=== PATIENT | female | born 1940 | race Caucasian/White ===

== ENCOUNTER → 2016-12-28 | Outpatient (CLI) | payer MEDICARE ==
--- NOTE | 2016-08-29 10:22 | MH ---
cc: EVELIN CARPENTER DATE OF ADMISSION 12/28/2016 ADMISSION DIAGNOSIS Cloudy posterior capsule left eye. HISTORY OF PRESENT ILLNESS This 75-year-old white female is coming through [facility] for the purpose of a YAG laser posterior capsulotomy of the left eye. She is status post bilateral cataract surgery with intraocular lens implants in 2013 and has done well postoperatively, but now notices decreasing visual acuity interfering with her daily activities and has elected to have a YAG laser posterior capsulotomy of the left eye at this time. PAST MEDICAL HISTORY The patient has a history of: 1. Kidney failure stage III 2. Acid reflux 3. Sinus problems 4. Cholesterol problems 5. Atrial fibrillation 6. Hypertension SURGICAL HISTORY Includes the: 1. Bilateral cataracts mentioned above 2. Foot surgery 3. Left knee replacement MEDICATIONS Daily medications include: 1. Xarelto 2. Avastin 3. Aspirin 4. Ranitidine 5. Bethanechol 6. Centrum Silver 7. Propafenone ALLERGIES She has no known allergies. SOCIAL HISTORY Noncontributory FAMILY HISTORY Positive for mother with cataracts and retinal tear. REVIEW OF SYSTEMS Noncontributory OCULAR EXAM On ocular exam, the patient's best corrected visual acuity is 20/25 -3 in each eye. Visual cho are full to confrontation testing. Extraocular muscle exam reveals full versions with orthophoria at distance and near. Pupils are 2.5 mm equal, round, reactive to light without afferent defect. Anterior segment examination reveals dermatochalasis of the eyelid skin. There is a posterior chamber intraocular lens in place in both eyes with cloudy posterior capsules in both eyes. Intraocular pressure is 12 in the right eye and 13 in the left by applanation tonometry. Dilated fundus exam revealed sharp disks with cup-to-disk ratio of 0.3 bilaterally. There is some granularity in the macula of each eye. A posterior vitreous detachment is present bilaterally. IMPRESSION 1. Cloudy posterior capsule both eyes 2. Pseudophakia both eyes 3. Posterior vitreous detachment both eyes PLAN The plan is YAG laser posterior capsulotomy of the eye through [facility]. MD KATHARINA Ochoa/AKIRA /7:45 AM /10:20 AM HAL
[~2016-12-28] MED LIST: BALANCED SALT SOLN OPHT IRRIG 15 ML BTL ONE; BETH25TA2 PO; CALC1TAB87 PO; CENTCHW4 CHEW; FLUOROMETHOLONE 0.25% OPHT SUSP 5 ML BTL LEFT EYE ONE; FLUOROMETHOLONE 0.25% OPHT SUSP 5 ML BTL ONE; HYDR-3516 PO; LIPI20TA PO; PHENYLEPHRINE HCL 2.5% OPTH SOLN 2 ML BTL LEFT EYE ONE; PHENYLEPHRINE HCL 2.5% OPTH SOLN 2 ML BTL ONE; PROP1CAP32 PO; PROPARACAINE HCL 0.5% OPHT SOLN 15 ML BTL LEFT EYE ONE; PROPARACAINE HCL 0.5% OPHT SOLN 15 ML BTL ONE; TROPICAMIDE 1% OPHT SOLN 15 ML BTL LEFT EYE ONE; TROPICAMIDE 1% OPHT SOLN 15 ML BTL ONE; XARE20TA PO; [UNRECOGNIZED DRUG - CODE] PO
--- NOTE | 2016-12-28 11:08 | MP ---
cc: EVELIN MARIE M.D. DATE OF SURGERY 12/28/2016 PREOPERATIVE DIAGNOSIS Cloudy posterior capsule left eye. POSTOPERATIVE DIAGNOSIS Cloudy posterior capsule left eye. OPERATION YAG laser posterior capsulotomy, left eye. SURGEON Evelin Marie MD ANESTHESIA Topical COMPLICATIONS None INDICATIONS See history and physical previously dictated. PROCEDURE The patient arrived at [facility]. Blood pressure was 120/70, pulse 57, respirations 18. A drop of Alphagan P and Mydriacyl were instilled in the left eye. The patient was seated at the YAG laser. A drop of Alcaine was instilled in the left eye and a YAG laser posterior capsulotomy lens was placed on the anterior surface of the left cornea. YAG laser posterior capsulotomy was carried out utilizing 99 exposures of 1.6 millijoules. An adequate opening was seen following the procedure. A drop of Alphagan P was instilled topically. The patient was given a prescription for a topical steroid to be used four times per day and has an appointment for follow up on the first postoperative day in my office. The patient left the [facility] in satisfactory condition. MD KATHARINA Ochoa/AKIRA /10:28 AM /11:02 AM .2
== END ==
LOC: PHSDC 07:31
PROVIDERS: ATTEND Ophthalmology
DX: H26.492 Other secondary cataract, left eye (principal); H43.813 Vitreous degeneration, bilateral; Z96.1 Presence of intraocular lens; I12.9 Hypertensive chronic kidney disease with stage 1 through stage 4 chronic kidney disease, or unspecified chronic kidney disease; N18.3 Chronic kidney disease, stage 3 (moderate); I48.91 Unspecified atrial fibrillation; K21.9 Gastro-esophageal reflux disease without esophagitis; Z79.01 Long term (current) use of anticoagulants; Z96.652 Presence of left artificial knee joint

== ENCOUNTER → 2017-02-27 | Outpatient (CLI) | payer MEDICARE ==
--- NOTE | 2017-02-22 13:42 | MH ---
cc: EVELIN CARPENTER DATE OF ADMISSION: 02/27/2017 ADMISSION DIAGNOSIS Cloudy posterior capsule, right eye. HISTORY OF PRESENT ILLNESS This 76-year-old white female is coming through [facility] for the purpose of a YAG laser posterior capsulotomy on the right eye. She is status post bilateral cataract surgery with intraocular lens implants and status post YAG laser posterior capsulotomy on the left eye. She has done well postoperatively and now requests the YAG laser procedure in her right eye which has a cloudy posterior capsule. PAST MEDICAL HISTORY The patient has a history of: 1. Kidney failure, stage III. 2. Acid reflux. 3. Sinus problems. 4. Cholesterol problems. 5. Atrial fibrillation. 6. Hypertension. PAST SURGICAL HISTORY 1. Bilateral cataract surgery. 2. YAG laser posterior capsulotomy on the left eye. 3. Left knee replacement. 4. Foot surgery. MEDICATIONS Daily medications include: 1. Xarelto. 2. Atorvastatin. 3. Baby aspirin. 4. Ranitidine. 5. Bethanechol. 6. Centrum Silver. 7. Propafenone. ALLERGIES No known allergies. FAMILY HISTORY Positive for mother with cataracts and retinal tear. SOCIAL HISTORY/REVIEW OF SYSTEMS Noncontributory. OCULAR EXAM: The patient's visual acuity with correction is 20/25 in the right eye and 20/20 in the left. Visual cho are full to confrontation testing. Extraocular muscle exam reveals full versions with orthophoria at distance and near. Pupils are 3 mm equal, round, reactive to light without afferent defect. Anterior segment examination reveals a bilateral posterior chamber intraocular lens implants with a cloudy posterior capsule in the right eye and a YAG laser posterior capsulotomy in the left. Intraocular pressure is 12 in the right eye and 14 in the left by applanation tonometry. Dilated fundus exam revealed sharp disk with cup-to-disk ratio 0.3 bilaterally. There is granularity in the macula of each eye and a posterior vitreous detachment bilaterally. IMPRESSION 1. Cloudy posterior capsule, right eye. 2. Pseudophakia, both eyes. 3. Posterior vitreous detachment, both eyes. PLAN The plan is YAG laser posterior capsulotomy of the right eye through [facility]. MD KATHARINA Ochoa/VENICE /1:25 PM /1:32 PM
[~2017-02-27] MED LIST changes: -FLUOROMETHOLONE 0.25% OPHT SUSP 5 ML BTL LEFT EYE ONE; -FLUOROMETHOLONE 0.25% OPHT SUSP 5 ML BTL ONE; +FLUOROMETHOLONE 0.25% OPHT SUSP 5 ML BTL RIGHT EYE ONE; -PHENYLEPHRINE HCL 2.5% OPTH SOLN 2 ML BTL LEFT EYE ONE; -PROPARACAINE HCL 0.5% OPHT SOLN 15 ML BTL LEFT EYE ONE; -TROPICAMIDE 1% OPHT SOLN 15 ML BTL LEFT EYE ONE
--- NOTE | 2017-02-27 13:02 | MP ---
cc: EVELIN MARIE DATE OF SURGERY 02/27/2017 PREOPERATIVE DIAGNOSIS Cloudy posterior capsule right eye. POSTOPERATIVE DIAGNOSIS Cloudy posterior capsule right eye. OPERATION YAG laser posterior capsulotomy, right eye. SURGEON Evelin Marie MD ANESTHESIA Topical COMPLICATIONS None INDICATIONS See history and physical previously dictated. PROCEDURE The patient arrived at [facility]. Blood pressure was 152/82, pulse 57, respirations 18. A drop of Alphagan P and Mydriacyl were instilled in the right eye. The patient was seated at the YAG laser. A drop of Alcaine was instilled in the right eye and a YAG laser posterior capsulotomy lens was placed on the anterior surface of the right cornea. YAG laser posterior capsulotomy was carried out utilizing 123 exposures of 1.5 millijoules. An adequate opening was seen following the procedure. A drop of Alphagan P was instilled topically. The patient was given a prescription for a topical steroid to be used four times per day and has an appointment for follow up on the first postoperative day in my office. The patient left the [facility] in satisfactory condition. MD KATHARINA Ochoa/AKIRA /11:46 AM /1:03 PM .4
== END ==
LOC: PHSDC 08:56
PROVIDERS: ATTEND Ophthalmology
DX: H26.491 Other secondary cataract, right eye (principal); H43.813 Vitreous degeneration, bilateral; Z96.1 Presence of intraocular lens; I48.91 Unspecified atrial fibrillation; K21.9 Gastro-esophageal reflux disease without esophagitis; I12.9 Hypertensive chronic kidney disease with stage 1 through stage 4 chronic kidney disease, or unspecified chronic kidney disease; N18.3 Chronic kidney disease, stage 3 (moderate)

== ENCOUNTER → 2017-09-04 | Outpatient (CLI) | payer MEDICARE ==
[~2017-09-04] MED LIST changes: -BALANCED SALT SOLN OPHT IRRIG 15 ML BTL ONE; -FLUOROMETHOLONE 0.25% OPHT SUSP 5 ML BTL RIGHT EYE ONE; -PHENYLEPHRINE HCL 2.5% OPTH SOLN 2 ML BTL ONE; -PROPARACAINE HCL 0.5% OPHT SOLN 15 ML BTL ONE; -TROPICAMIDE 1% OPHT SOLN 15 ML BTL ONE
--- NOTE | 2017-09-04 11:21 | RADRPT ---
EXAM DATE: 09/04/2017 10:55 AM EDT AGE/SEX: 76 years / Female INDICATIONS: Dysphagia for many years CLINICAL DATA: This is the patient's initial encounter. Patient reports that signs and symptoms have been present for > 1 year and indicates a pain score of 0/10. MEDICAL/SURGICAL HISTORY: . dysphagia multiple esophageal dilatations . COMPARISON: No prior [place] exams available for comparison. FLUORO TIME: 1.3 IMAGE COUNT: 0 FINDINGS: A modified barium swallow was performed with speech pathology. Patient was given a variety of liquids to swallow. Normal deglutition without aspiration. For a full detailed report, see report by the speech pathologist. CONCLUSION: Normal deglutition without aspiration. Detailed report will be provided by speech pathology. Electronically signed by: Robert Gibbs MD 09/04/2017 11:20 AM EDT
== END ==
LOC: HRAD 10:08
PROVIDERS: ATTEND Internal Medicine Gastroenterology
DX: R13.10 Dysphagia, unspecified (principal)
CPT/HCPCS: 74230; 92611; G8996; G8997; G8998